=== PATIENT | female | born 1955 | race Caucasian/White ===

== ENCOUNTER → 2017-01-14 | Outpatient (CLI) | payer BC ==
--- NOTE | 2017-01-14 12:12 | REP ---
RIGHT FOOT COMPLETE: 01/14/2017 CLINICAL HISTORY: Injured right foot pain at the base of 5th metatarsal. Question avulsion. COMPARISON: None. FINDINGS: Four views are provided. There are two ossific densities adjacent to the 5th metatarsal head proximally. One is immediately adjacent to that head and the other is adjacent to the nearby lateral margin of the cuboid. The articulation between the bones is normal. The small ossific density about the proximal 5th metatarsal is smooth margins indicating it is old. Some of the margins along the ossification adjacent to the cuboid are indistinct. This could be new or old avulsion. The remainder the tarsal bones and articulations are intact. Metatarsals show no fractures. There are degenerative changes at the 1st MTP joint with minimal degenerative changes at the IP joints. Hind foot shows a plantar calcaneal spur. Subtalar joints intact. IMPRESSION: 1. Two small ossific densities laterally, one adjacent to the proximal head of the 5th metatarsal with smooth margins indicating this would be an old avulsion or accessory ossicle. The second has some margins indistinct and may represent an acute avulsion or old avulsion near the adjacent cuboid. Please correlate clinically. There is diffuse soft tissue swelling about the lateral aspect of the foot. 2. Degenerative changes 1st MTP joint and a plantar calcaneal spur noted. Signed by John Duncan MD 01/14/2017 07:36 P
== END ==
LOC: M WUC 11:18
PROVIDERS: ATTEND Physician Assistant
DX: M79.671 Pain in right foot (principal); M19.071 Primary osteoarthritis, right ankle and foot

== ENCOUNTER → 2021-02-17 | Outpatient (CLI) | payer MEDICARE, BC ==
--- NOTE | 2021-02-17 11:46 | REP ---
INDICATION: RT KNEE PAIN ? MENISCUS TEAR. COMPARISON: None. TECHNIQUE: Axial, coronal, and sagittal imaging planes are utilized. T1, proton density, and T2 weighted scans are obtained in the usual fashion with without fat saturation. FINDINGS: There is 1 area of subcortical cyst formation and marrow edema in the lateral patellar facet. Cortical and medullary bone signal intensity are otherwise normal. There is some extra articular prepatellar soft tissue swelling. Patellar and quadriceps tendons appear intact. Anterior and posterior cruciate ligaments are intact. There is no evidence of medial or lateral collateral ligament disruption. There is mild osteoarthritic spurring in the medial and lateral tibial femoral compartment. There is moderate chondromalacia in the medial and lateral femoral condyles and to a lesser extent in the tibial plateaus. There is no evidence of medial or lateral meniscal tear. There is extensive severe chondromalacia patella with full-thickness articular cartilage loss particularly over the lateral patellar facet associated with the underlying marrow edema and cyst formation. Femoral trochlear cartilage is preserved. The medial and lateral patellar retinacular structures are intact. There is no visible Collazo's cyst. A small quantity of joint fluid is present. IMPRESSION: Osteoarthritis most prominently affecting the patellofemoral compartment. 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 Moderate chondromalacia is seen in the medial and lateral tibiofemoral compartments. No other evidence of internal derangement seen. <Electronically signed by Brooks Bishop > 02/17/21 [id number]
== END ==
LOC: M PLAIMG 10:27
PROVIDERS: ATTEND Internal Medicine Rheumatology
DX: M17.11 Unilateral primary osteoarthritis, right knee (principal)